=== PATIENT | female | born 1995 | race Caucasian/White ===

== ENCOUNTER 2020-07-18 14:15 | Emergency (ER) | payer OTHER, SELFPAY ==
--- NOTE | ~2020-07-18 | XR_ITS ---
EXAMINATION: XR chest 2V EXAM DATE: 07/18/2020 15:23 INDICATION: Left-sided chest pain. History of heart surgery. TECHNIQUE: Frontal and lateral projections of the chest obtained and reviewed. There is no prior destinee dy for comparison. FINDINGS: Sternotomy wires are present without findings to suggest sternal dehiscence. There is a va lve replacement. The lungs are clear. There are no pleural effusions. The cardiomediastinal silhoue tte is within normal limits. There is no pneumothorax suspected. The bones and soft tissues are unr emarkable. IMPRESSION: No acute cardiopulmonary findings. Reviewed, dictated and finalized at location [facility]. [facility]
[2020-07-18 14:15] VITALS: BP 112/65; PULSE 70; PULSE 71; RESP 14; TEMP 36.5; O2SAT 99
--- NOTE | 2020-07-18 14:47 | ECG_ITS ---
Measurements Intervals [place] Rate: 54 P: 66 CT: 140 QRS: 107 QRSD: 118 T: 88 QT: 439 QTc: 416 Interpretive Statements SINUS BRADYCARDIA RIGHT AXIS DEVIATION INCOMPLETE RIGHT BUNDLE BRANCH BLOCK BORDERLINE ST-T WAVE ABNORMALITY- HIGH LATERAL LEADS BORDERLINE ECG Electronically Signed On 07-18-2020 15:12:17 [employer] by Zack Martino D.O.
[2020-07-18 15:05] VITALS: PULSE 55; RESP 10; O2SAT 98
[2020-07-18 15:15] VITALS: PULSE 57; RESP 18; O2SAT 99
[2020-07-18 15:25] LABS: Basophils Absolute Auto 0.02 K/mm3 (0.00-0.10); Basophils Percent Auto 0.2 % (0.0-1.0); Eosinophils Absolute Auto 0.09 K/mm3 (0.02-0.50); Eosinophils Percent Auto 1.1 % (1.0-6.0); Hemoglobin 13.1 g/dL (12.0-15.0); Immature Granulocyte Absolute 0.03 K/mm3 (0.00-0.00); Immature Granulocyte Percent A 0.4 % (0.0-0.0); Lymphocytes Absolute Auto 2.13 K/mm3 (1.10-4.50); Lymphocytes Percent Auto 25.4 % (18.0-42.0); Mean Corpuscular HGB Conc 32.8 g/dL (32.0-36.0); Mean Corpuscular Hemoglobin 29.3 pg (27.0-31.0); Mean Corpuscular Volume 89.5 fL (78.0-102.0); Monocytes Absolute Auto 0.57 K/mm3 (0.10-0.90); Monocytes Percent Auto 6.8 % (2.0-11.0); Neutrophils Absolute Auto 5.6 K/mm3 (1.7-7.2); Neutrophils Percent Auto 66.1 % (50.0-70.0); Platelet Count Result 329 K/mm3 (150-420); Red Blood Count 4.47 M/mm3 (4.20-5.40); Red Cell Distribution Width 12.1 % (11.6-14.4); White Blood Count 8.4 K/mm3 (4.8-10.8)
[2020-07-18 15:30] VITALS: PULSE 56; RESP 13; O2SAT 99
[2020-07-18 15:39] LABS: Alanine Aminotransferase 18 U/L (14-59); Albumin Level 3.9 g/dL (3.4-5.0); Alkaline Phosphatase 65 U/L (46-116); Anion Gap 6 mmol/L (8-16); Aspartate Amino Transferase 17 U/L (15-37); Bilirubin,Total 0.5 mg/dL (0.00-1.00); Blood Urea Nitrogen 11 mg/dL (7-18); Calcium 9.3 mg/dL (8.5-10.1); Carbon Dioxide 27 mmol/L (21-32); Chloride 104 mmol/L (98-108); Estimated CRCL calculation 90 ml/min; Estimated Glomerular Filt Rate > 60; Glucose 127 mg/dL (70-99); Lipase 100 U/L (73-393); Osmolality Calculated 285 mOsm/kg (285-295); Potassium 4.4 mmol/L (3.5-5.1); Sodium 137 mmol/L (136-145); Total Protein 7.2 g/dL (6.4-8.2)
[2020-07-18 15:45] VITALS: PULSE 57; RESP 15; O2SAT 99
[2020-07-18 15:54] LABS: BNP 32 pg/mL (0-100)
[2020-07-18 16:00] LABS: Troponin I 6.2 ng/L (0.00-60.4)
--- NOTE | 2020-07-18 16:10 | ED.CHESTPAIN ---
HPI - Chest Pain General Chief Complaint: Chest Pain Stated Complaint: chest pains Source: patient and family Mode of arrival: ambulatory Limitations: no limitations History of Present Illness HPI narrative: this is a 25-year-old female presents with chest pain midsternal reproducible with no nausea vomiting no shortness of breath no fever chills no diaphoresis. The patient has a history of a pulmonary valve replacement surgery approximately 2 years ago and recently diagnosed with COVID on the 26 of June. Currently no fever chills no nausea vomiting no diaphoresis. MD complaint: chest pain Pertinent past history: other ( history of pulmonary valve surgery 2 years ago) Onset (ago): hour(s) Timing of current episode: episodic Prior episodes: No Onset: during rest Pain radiation: none Severity: mild Quality: dull ( reproducible chest pain with palpation) Relieving factors: nothing Exacerbating factors: nothing Context: recent illness ( recent diagnosis of COVID on June 26) Related Data Home Medications Medication Instructions Recorded Confirmed metoprolol succinate 12.5 mg PO DAILY 07/18/20 07/18/20 Allergies Allergy/AdvReac Type Severity Reaction Status Date / Time Penicillins Allergy Intermediate Rash Verified 05/06/18 01:23 Review of Systems Review of Systems: All systems reviewed & are unremarkable except as noted in HPI and below PMFSH Past Medical History Medical History Pulmonary valve disease Exam Const: General: no acute distress and alert Orientation/consciousness: patient oriented x3 HENMT: Head: normal to inspection Eyes: Conjunctivae: conjunctivae normal Pupils: Equal, round and reactive pupils present Neck: Neck: normal visual inspection, no lymphadenopathy and no meningeal signs Chest: Chest palpation & inspection: normal inspection of the chest Resp: Effort & Inspection: normal respiratory effort Auscultation: clear to auscultation bilaterally Cardio: Rate: regular rate and bradycardic GI: Auscultation: normal bowel sounds : General: Yes no CVA tenderness Skin: General skin exam: normal color Rashes: no rashes Neuro: General: patient oriented x3, moves all extremities, no meningeal signs and no focal motor deficits Extrem: General: normal to inspection Psych: Appearance: grossly normal Mental Status: mental status grossly normal Thought content: Yes Normal thought content present Course Course Emergency Course: patient declined any pain medicine, her pain level was at about a 2 or 3, was reproducible with palpation to the mid sternum, reviewed x-ray and EKG and lab findings with patient and family and advised follow-up with primary care physician. Vital Signs Vital signs: Vital Signs Temperature 36.5 C 07/18/20 14:15 Pulse Rate 71 07/18/20 14:15 Respiratory Rate 14 07/18/20 14:15 Blood Pressure 112/65 07/18/20 14:15 Pulse Oximetry 99 07/18/20 14:15 Temperature 36.5 C 07/18/20 14:15 Pulse Rate 57 L 07/18/20 15:45 Respiratory Rate 15 07/18/20 15:45 Blood Pressure 112/65 07/18/20 14:15 Pulse Oximetry 99 07/18/20 15:45 MDM - Chest Pain Lab Data Result diagrams: 07/18/20 15:15 07/18/20 15:15 Labs: Lab Results 07/18/20 07/18/20 07/18/20 Range/Units 15:15 15:15 15:15 WBC 8.4 (4.8-10.8) K/mm3 RBC 4.47 (4.20-5.40) M/mm3 Hgb 13.1 (12.0-15.0) g/dL Hct 40.0 (35.0-49.0) % MCV 89.5 (78.0-102.0) fL MCH 29.3 (27.0-31.0) pg MCHC 32.8 (32.0-36.0) g/dL RDW 12.1 (11.6-14.4) % Plt Count 329 (150-420) K/mm3 MPV 10.0 (9.2-11.8) fl Immature Gran % (Auto) 0.4 H (0.0-0.0) % Neut % (Auto) 66.1 (50.0-70.0) % Lymph % (Auto) 25.4 (18.0-42.0) % [place] % (Auto) 6.8 (2.0-11.0) % Eos % (Auto) 1.1 (1.0-6.0) % Baso % (Auto) 0.2 (0.0-1.0) % Lymph # (Auto) 2.13 (1.10-4.50)
[2020-07-18 16:19] VITALS: RESP 15; O2SAT 100
== END 2020-07-18 16:22 | disposition home or self-care (01) ==
PROVIDERS: Emergency Provider Emergency Medicine; PCP Family Medicine
DX: M94.0 Chondrocostal junction syndrome [Tietze] (principal)
CPT/HCPCS: 36415; 71046; 80053; 83690; 83880; 84484; 85025; 93005; 99283; 99284